=== PATIENT | male | born 1940 | race American Indian/Alaskan Native ===

== ENCOUNTER 2022-03-08 21:07 | Emergency (ER) | payer MEDICARE ==
--- NOTE | 2022-03-08 22:40 | XRay Report ---
RIGHT RIBS 4 VIEWS INDICATION / CLINICAL INFORMATION: right rib pain. COMPARISON: None available. FINDINGS: RIBS: No acute, displaced fracture or other acute abnormality. LUNGS: No acute findings. No pneumothorax. Signer Name: Von Brar DO Signed: 03/08/2022 10:35 PM Workstation Name: [id number]
[2022-03-08] MEDS ORDERED: HYDROcodone/ACETAMINOPHEN 5-325 MG TAB PO ONE (22:53)
--- NOTE | 2022-03-09 00:59 | Emergency Department Report ---
ED Fall HPI - General Chief Complaint: Fall Stated Complaint: RT FLANK PAIN Time Seen by Provider: 03/08/22 23:07 Source: patient Mode of arrival: Stretcher - History of Present Illness Initial Comments: Is a 81-year-old male who presents for right sided rib pain status post ground- level fall at home impacting his tub and right ribs. Patient rates pain at 8/10 exacerbated by deep inspiration and movement. Patient arrived to ED via POV and family member. Patient denies hemoptysis no cough no shortness of breath no wheezing or stridor. There is been no nausea or vomiting. Patient denies other injury. Patient exacerbated by palpation and inspiration. Pain is relieved by nothing tried. MD Complaint: fall - Related Data Previous Rx's Medication Instructions Recorded Last Taken Type HYDROcodone/APAP 5-325 [[place] 1 each PO Q6HR PRN #12 tablet 03/09/22 Unknown Rx 5-325 mg TAB] Allergies Allergy/AdvReac Type Severity Reaction Status Date / Time No Known Allergies Allergy Unverified 03/08/22 22:05 ED Review of Systems ROS: Stated complaint: RT FLANK PAIN Other details as noted in HPI Constitutional: denies: chills, fever Eyes: denies: eye pain, eye discharge, vision change ENT: denies: ear pain, throat pain Respiratory: denies: cough, shortness of breath, wheezing Cardiovascular: chest pain (Right rib pain). denies: dyspnea on exertion Endocrine: no symptoms reported Gastrointestinal: denies: abdominal pain, nausea, vomiting, diarrhea Genitourinary: denies: urgency, dysuria Musculoskeletal: denies: back pain, joint swelling, arthralgia Skin: denies: rash, lesions Neurological: denies: headache, weakness, paresthesias Psychiatric: denies: anxiety, depression Hematological/Lymphatic: denies: easy bleeding, easy bruising ED Past Medical Hx - Past Medical History Previous Medical History?: Yes Hx Hypertension: Yes - Surgical History Past Surgical History?: No - Social History Smoking Status: Never Smoker Substance Use Type: None - Medications Home Medications: Home Medications Medication Instructions Recorded Confirmed Last Taken Type HYDROcodone/APAP 5-325 [[place] 1 each PO Q6HR PRN #12 tablet 03/09/22 Unknown Rx 5-325 mg TAB] ED Physical Exam - General Limitations: No Limitations General appearance: alert, in no apparent distress - Head Head exam: Present: normocephalic, normal inspection - Eye Eye exam: Present: PERRL, EOMI Pupils: Present: normal accommodation - ENT ENT exam: Present: mucous membranes moist - Neck Neck exam: Present: normal inspection, full ROM. Absent: tenderness (No posterior vertebral point tenderness range of motion is intact unrestricted all quadrants. No swelling ecchymosis or step-off.), meningismus - Respiratory Respiratory exam: Present: normal lung sounds bilaterally, chest wall tenderness (Right lateral rib pain no crepitus no ecchymosis no step-off. Lung sounds are clear throughout.). Absent: respiratory distress, wheezes, rales, rhonchi, stridor, prolonged expiratory - Cardiovascular Cardiovascular Exam: Present: regular rate, normal rhythm, normal heart sounds. Absent: systolic murmur, diastolic murmur, rubs, gallop - GI/Abdominal GI/Abdominal exam: Present: soft, normal bowel sounds. Absent: distended, tenderness, guarding, rebound, rigid, bruit, hernia - Rectal Rectal exam: Present: deferred - Extremities Exam Extremities exam: Present: normal inspection, full ROM, normal capillary refill. Absent: tenderness - Back Exam Back exam: Present: normal inspection, full ROM. Absent: paraspinal tenderness, vertebral tenderness - Neurological Exam Neurological exam: Present: alert, oriented X3, CN II-XII intact, normal gait, reflexes normal. Absent: motor sensory deficit - Expanded Neurological Exam Expanded Patient oriented to: Present: person, place, time Speech: Present: fluid speech Cranial nerves: EOM's Intact: Normal Motor strength exam: RUE: 5, LUE: 5, RLE: 5, LLE: 5 Best Eye Response (Stevan): (4) open spontaneously Best Motor Response (Stevan): (6) obeys commands Best Verbal Response (Hershey): (5) oriented [place]hey Total: 15 - Psychiatric Psychiatric exam: Present: normal affect, normal mood - Skin Skin exam: Present: warm, dry, intact, normal color. Absent: rash ED Course Vital Signs 03/08/22 21:58 Temperature 97.9 F Pulse Rate 82 Respiratory 18 Rate Blood Pressure 140/86 O2 Sat by Pulse 99 Oximetry ED Medical Decision Making - Radiology Data Radiology results: report reviewed, image reviewed RIGHT RIBS 4 VIEWS INDICATION / CLINICAL INFORMATION: right rib pain. COMPARISON: None available. FINDINGS: RIBS: No acute, displaced fracture or other acute abnormality. LUNGS: No acute findings. No pneumothorax. Signer Name: Von Brar DO Signed: 03/08/2022 10:35 PM Workstation Name: [id number] Transcribed By: ALENA Dictated By: VON BRAR DO Electronically Authenticated By: VON BRAR DO Signed Date/Time: 03/08/222234 DD/ 34 TD/TT: - Medical Decision Making X-rays negative for fracture. Exam moderate tenderness to the right anterior CVA, no crepitus no step-off no ecchymosis. Lung sounds are clear throughout. Pain is reproducible to deep palpation however. Plan DC to home, prescription for pain medication, abdominal binder, follow-up with primary care doctor in 2 to 3 days. Patient verbalized agreement understanding with discharge plan. Patient DC'd home in stable condition at this time. Critical care attestation.: If time is entered above; I have spent that time in minutes in the direct care of this critically ill patient, excluding procedure time. ED Disposition Clinical Impression: Contusion of rib on right side Qualifiers: Encounter type: initial encounter Qualified Code(s): S20.211A - Contusion of right front wall of thorax, initial encounter Disposition: HOME / SELF CARE / HOMELESS Is pt being admited?: No Does the pt Need Aspirin: No Condition: Stable Instructions: Rib Contusion, Contusion, Blunt Chest Trauma Additional Instructions: Take medications as prescribed, use abdominal binder as directed. Follow-up with your primary care doctor in 2 to 3 days. Return to emergency department should symptoms worsen. Prescriptions: HYDROcodone/APAP 5-325 [[place] 5-325 mg TAB] 1 each PO Q6HR PRN #12 tablet PRN Reason: Pain Referrals: ANI ANDERSON MD [Staff Physician] - 3-5 Days Forms: Work/School Release Form(ED) Time of Disposition: 01:06
[2022-03-09] MEDS ORDERED: oxyCODONE /ACETAMINOPHEN 5-325MG TAB PO PRN (01:46)
[2022-03-09 01:57] VITALS: BP 156/89
== END 2022-03-09 03:54 | disposition home or self-care (01) ==
LOC: ED 21:07
DX: S20.211A Contusion of right front wall of thorax, initial encounter (principal); W19.XXXA Unspecified fall, initial encounter; Y93.89 Activity, other specified; Y92.89 Other specified places as the place of occurrence of the external cause; Y99.8 Other external cause status
CPT/HCPCS: 99283